=== PATIENT | female | born 1995 | race Caucasian/White ===

== ENCOUNTER 2019-12-06 20:16 | Emergency (ER) | payer MEDICAID ==
[~2019-12-06] VITALS: Ht 154.9 cm; Wt 70.0 kg
[2019-12-06] MEDS ORDERED: ACETAMINOPHEN 325MG TABLET PO STA (22:27)
[2019-12-07 00:25] VITALS: BP 121/64
== END 2019-12-07 00:27 | disposition home or self-care (01) ==
LOC: ER 20:16
DX: M25.512 Pain in left shoulder (principal); M94.0 Chondrocostal junction syndrome [Tietze]
CPT/HCPCS: 71045; 81025; 93005; 99283